=== PATIENT | female | born 1995 | race American Indian/Alaskan Native ===

== ENCOUNTER 2018-04-14 16:41 | Outpatient (CLI) | payer MEDICAID ==
[2018-04-14 17:04] VITALS: BP 114/64
[2018-04-14 18:39] LABS: Bilirubin,Urine NEG (Negative); Blood,Urine NEG (Negative); Color,Urine Yellow (Yellow); Protein,Urine <15 mg/dL mg/dL (Negative); Urobilinogen,Urine < 2.0 mg/dL (<2.0)
[2018-04-14 18:59] LABS: Amphetamine Screen,Urine PRESUMPTIVE NEGATIVE; Benzodiazepines Screen,Urine PRESUMPTIVE NEGATIVE; Cannabinoid Screen,Urine PRESUMPTIVE NEGATIVE; Cocaine Screen,Urine PRESUMPTIVE NEGATIVE; Methadone Screen,Urine PRESUMPTIVE NEGATIVE; Opiate Screen,Urine PRESUMPTIVE NEGATIVE
--- NOTE | 2018-04-14 19:47 | Ultrasound Report ---
FINAL REPORT EXAM: US OB > = 14 WEEKS FETUS HISTORY: limited PNC/leaking fluid TECHNIQUE: Ultrasound obstetrical transabdominal PRIORS: None. FINDINGS: Single live intrauterine gestation present in cephalic presentation The placenta is grade 2 and anterior Amniotic fluid index is 12.4 centimeters within normal limits. Deepest pocket measurement 5.13 centimeters biometric measurements were obtained Biparietal diameter 34 weeks 1 day Head circumference 35 weeks 4 days Abdominal circumference 34 weeks 0 days Femur length 33 weeks 6 days Based on today's exam estimated gestational age 34 weeks 2 days with estimated date of delivery May 24, 2018 Estimated weight today is 2363 grams Following structures seen appear grossly unremarkable, stomach, kidneys, urinary bladder, diaphragm, four-chamber view of the heart, three-vessel cord and cord insert, lateral ventricles and choroid plexus Visualized portions of the spine are unremarkable. IMPRESSION: Single live intrauterine gestation estimated at 34 weeks 2 days Based on today's exam estimated date of delivery May 24, 2018 Amniotic fluid index within normal limits 12.4 centimeters
== END 2018-04-14 19:10 | disposition home or self-care (01) ==
LOC: TRG 16:41
PROVIDERS: ATTEND Obstetrics & Gynecology
DX: O47.03 False labor before 37 completed weeks of gestation, third trimester (principal); Z79.899 Other long term (current) drug therapy; Z3A.35 35 weeks gestation of pregnancy
CPT/HCPCS: 59025; 76805; 80307; 81001

== ENCOUNTER 2018-05-02 08:12 | Outpatient (CLI) | payer MEDICAID ==
[2018-05-02 09:09] VITALS: BP 119/67
== END 2018-05-02 09:32 | disposition home or self-care (01) ==
LOC: TRG 08:12
PROVIDERS: ATTEND Obstetrics & Gynecology
DX: O47.03 False labor before 37 completed weeks of gestation, third trimester (principal); Z3A.36 36 weeks gestation of pregnancy
CPT/HCPCS: 59025

== ENCOUNTER 2018-05-07 05:17 | Inpatient (IN) | payer MEDICAID ==
[2018-05-07] MEDS ORDERED: ZOFRAN ODT PO ONE (06:30)
[2018-05-07 07:47] LABS: Bilirubin,Urine NEG (Negative); Blood,Urine NEG (Negative); Color,Urine Colorless (Yellow); Protein,Urine <15 mg/dL mg/dL (Negative); Urobilinogen,Urine < 2.0 mg/dL (<2.0)
--- NOTE | 2018-05-07 10:16 | History and Physical Report ---
History of Present Illness Date of examination: 05/07/18 Date of admission: 05/07/18 06:52 Chief complaint: Contractions History of present illness: 23yo G 2 P 1 0 0 1 at 37 weeks 2 days here with c/o contractions that started at 04:00. She reports positive movements but denies loss of fluid. She is a late transfer to [facility] from [place] at 34 weeks 4 days. She has a history of genital herpes and was on suppressive therapy. She denies recent outbreak or prodromal sxs. GBS is negative. Past History Past Medical History: no pertinent history Past Surgical History: no surgical history [employer] History: herpes Family/Genetic History: none Social history: single, full code - Obstetrical History Expected Date of Delivery: 05/26/18 Actual Gestation: 37 Week(s) 2 Day(s) : 2 Para: 1 Hx # Term Pregnancies: 1 Number of Pregnancies: 0 Spontaneous Abortions: 0 Induced : 0 Number of Living Children: 1 #1 Gender: Female year: (05/22/2015) Birthweight: 2.92 kg (6 lbs 7 oz) Method of Delivery: Vaginal Gestational age at delivery: 39 Complications: none Medications and Allergies Allergies Allergy/AdvReac Type Severity Reaction Status Date / Time No Known Allergies Allergy Verified 05/07/18 06:11 Home Medications Medication Instructions Recorded Confirmed Last Taken Type No Known Home Medications [No 05/02/18 05/02/18 Unknown History Reported Home Medications] Active Meds: Active Medications Lactated Ringer's (Lactated Ringers) 1,000 mls @ 125 mls/hr IV DIRECT LONNIE Review of Systems All systems: negative - Vital Signs Vital signs: Vital Signs Pulse BP 96 H 113/61 05/07/18 05:35 05/07/18 05:35 Temp Pulse Resp BP Pulse Ox 98.1 F 85 16 113/66 05/07/18 08:00 05/07/18 08:07 05/07/18 08:00 05/07/18 08:07 - Obstetrical FHR: auscultation normal, category 1 FHR comments: baseline 140, moderate variability, + accels, no decels Uterine Contraction Monitor Mode: External Cervical Dilatation: 5 (per RN) Cervical Effacement Percentage: 80 (per RN) station: -2 (per RN) Uterine Contraction Pattern: Regular Results Result Diagrams: 05/07/18 08:00 All other labs normal. Assessment and Plan - Patient Problems (1) 37 weeks gestation of Current Visit: Yes Status: Acute (2) Active labor at term Current Visit: Yes Status: Acute Plan to address problem: Admit to L&D with routine labor orders Anticipate vaginal delivery
[2018-05-07 10:20] LABS: Basophils % (Auto) 0.2 % (0.0-1.8); Eosinophils # (Auto) 0.1 K/mm3 (0.0-0.4); Eosinophils % (Auto) 0.8 % (0.0-4.3); Hematocrit 31.2 % (30.3-42.9); Hemoglobin 10.2 gm/dl (10.1-14.3); Lymphocytes # (Auto) 1.4 K/mm3 (1.2-5.4); Lymphocytes % (Auto) 19.2 % (13.4-35.0); Mean Corpuscular HGB Conc 33 % (30-34); Mean Corpuscular Hemoglobin 29 pg (28-32); Mean Corpuscular Volume 88 fl (79-97); Monocytes # (Auto) 0.8 K/mm3 (0.0-0.8); Monocytes % (Auto) 10.6 % (0.0-7.3); Platelet Count 147 K/mm3 (140-440); Red Blood Count 3.55 M/mm3 (3.65-5.03); Red Cell Distribution Width 15.7 % (13.2-15.2)
[2018-05-07] MEDS ORDERED: SUBLIMAZE IV PRN (10:30)
[2018-05-07] MEDS ORDERED: MINERAL OIL PO PRN (10:30)
[2018-05-07] MEDS ORDERED: XYLOCAINE 2% INFILTRATI NR (10:30)
[2018-05-07] MEDS ORDERED: BRETHINE SUB-Q PRN (10:30)
[2018-05-07] MEDS ORDERED: ePHEDrine SULFATE IV PRN ×2 (10:30→21:10)
[2018-05-07] MEDS ORDERED: PITOCin/NS 20 UNIT/1000ML DRIP 20 UNITS/1,000 ML BAG IV SCH (11:00)
[2018-05-07] MEDS: LACTATED RINGERS 1,000 ML IV SCH ×4 (11:30→21:49)
[2018-05-07] MEDS ORDERED: PITOCin/NS 30 UNIT/500ML 30 UNITS/500 ML BAG IV ONE (16:00)
--- NOTE | 2018-05-07 21:09 | Anesthesia Consultation ---
Anesthesia Consult and Med Hx Date of service: 05/07/18 - Airway Anesthetic Teeth Evaluation: Good ROM Head & Neck: Adequate Mental/Hyoid Distance: Adequate Mallampati Class: Class II Intubation Access Assessment: Probably Good - Pre-Operative Health Status ASA Pre-Surgery Classification: ASA2 Proposed Anesthetic Plan: Epidural, Spinal - Pulmonary Hx Asthma: No COPD: No Hx Pneumonia: No - Cardiovascular System Hx Hypertension: No - Central Nervous System Hx Seizures: No Hx Psychiatric Problems: No - Endocrine Hx Renal Disease: No Hx End Stage Renal Disease: No Hx Hypothyroidism: No Hx Hyperthyroidism: No - Hematic Hx Anemia: No Hx Sickle Cell Disease: No - Other Systems Hx Alcohol Use: No
[2018-05-07] MEDS ORDERED: NARCAN 2 MG/2 ML IV PRN (21:10)
[2018-05-07] MEDS ORDERED: fentaNYL-BUPIV 2 MCG/ML-0.125% 200 MCG/100 ML BAG EPIDURAL SCH (22:00)
--- NOTE | 2018-05-07 22:15 | Event Note ---
Date: 05/07/18 S: Pt resting in bed. Family members at bedside. Pain level 0/10 post-epidural. O: baseline 135, mod variability, + accels, intermittent early & variable decels Ctxs: q2-3mins, palpate moderate Oxytocin @ 8mu/min AROM @ 21:52; clear fluid, large amount A: 23yo G 2 P 1 0 0 1 at 37w4d by LMP confirmed by 14w3d US Active labor Category II FHR Pain well controlled P: Continue labor augmentation with Oxytocin Continue routine labor orders Anticipate vaginal delivery
--- NOTE | 2018-05-07 23:04 | Procedure Note ---
OB Delivery Note - Delivery Date of Delivery: 05/07/18 (22:38) Surgeon: DIVYA MCINTYRE (JAN) Estimated blood loss: 200cc - Vaginal Delivery presentation: vertex Delivery position: OA Intrapartum events: none Delivery induction: none Delivery augmentation: rupture of membranes, pitocin Delivery monitor: external FHT, external uterine Route of delivery: Delivery placenta: spontaneous (22:46) Delivery cord: 3 umbilical vessels Episiotomy: none Delivery laceration: none Anesthesia: epidural Delivery comments: of a vigorous term 5 lbs 11.5oz female at 22:38. Baby placed [id number] on maternal abdomen and dried. Umbilical cord double-clamped by JAN Mcintyre and cut by FOB. Spontaneous delivery of placenta, Jenifer-side presenting @22:46 ; was discarded. Small lochia noted. Fundus F/ML/U-2. Placenta intact. No lacerations present. Perineum intact. Mom and baby in stable condition. - A at 1 minute: 8 at 5 minutes: 9 Infant Gender: Female (5 lbs 11.5 oz (2594 gm); 18 in)
[2018-05-07] MEDS ORDERED: ZOFRAN IV PRN (23:42)
[2018-05-07] MEDS ORDERED: PHENERGAN PR PRN (23:42)
[2018-05-07] MEDS ORDERED: LANSINOH TP PRN (23:42)
[2018-05-07] MEDS ORDERED: MILK OF MAGNESIA PO PRN (23:42)
[2018-05-07] MEDS ORDERED: TUCKS PAD TP PRN (23:42)
[2018-05-07] MEDS ORDERED: TYLENOL PO PRN (23:42)
[2018-05-07] MEDS ORDERED: NORCO 5/325 PO PRN (23:42)
[2018-05-07] MEDS ORDERED: PHENERGAN PO PRN (23:42)
[2018-05-07] MEDS ORDERED: DULCOLAX PR PRN (23:42)
[2018-05-07] MEDS ORDERED: BENADRYL PO PRN (23:42)
[2018-05-07] MEDS ORDERED: SODIUM CHLORIDE FLUSH SYRINGE 10 ML IV PRN (23:45)
[2018-05-08] MEDS: MOTRIN PO SCH ×2 (01:42→10:22)
[2018-05-08] MEDS ORDERED: PRENATAL VITAMIN PO SCH (10:00)
--- NOTE | 2018-05-08 10:10 | Progress Note ---
Assessment and Plan A: PPD#1 s/p Stable P: Routine PP care Anticipate discharge home 24-48hrs Subjective - Subjective Date of service: 05/08/18 Principal diagnosis: PPD#1 s/p Patient reports: appetite normal, voiding normally, pain well controlled, flatus , ambulating normally, no bowel movement [place]: doing well, nursing well Objective - Vital Signs Latest vital signs: Vital Signs Temp Pulse Resp BP BP Pulse Ox 05/08/18 07:59 83 107/71 100 05/08/18 07:58 97.4 F L 80 18 107/71 100 05/08/18 06:05 97.5 F L 59 L 18 101/59 05/08/18 04:18 20 05/08/18 01:42 20 05/08/18 01:35 98.0 F 72 110/65 05/08/18 00:14 97.9 F 18 05/08/18 00:07 54 L 104/69 05/07/18 23:52 64 122/59 05/07/18 23:37 65 110/66 05/07/18 23:22 80 113/66 05/07/18 23:07 77 115/58 05/07/18 22:52 107/65 05/07/18 22:37 75 119/66 05/07/18 22:33 95 H 76 L 05/07/18 22:31 106 H 99 05/07/18 22:26 85 97 05/07/18 22:22 90 124/64 05/07/18 22:21 89 100 05/07/18 22:16 99 H 100 05/07/18 22:11 83 100 05/07/18 22:06 80 117/71 100 05/07/18 22:04 80 126/70 05/07/18 22:01 67 115/59 100 05/07/18 21:59 71 109/58 05/07/18 21:57 81 105/58 05/07/18 21:56 71 99 05/07/18 21:55 69 105/58 05/07/18 21:53 75 105/60 05/07/18 21:51 71 106/62 96 05/07/18 21:49 77 108/56 05/07/18 21:47 75 108/59 05/07/18 21:46 76 113/57 97 05/07/18 21:43 71 110/62 05/07/18 21:41 71 121/62 99 05/07/18 21:39 65 110/57 05/07/18 21:37 72 115/64 05/07/18 21:36 67 99 05/07/18 21:35 67 115/69 05/07/18 21:33 75 110/64 05/07/18 21:31 65 117/65 99 05/07/18 21:29 73 117/68 05/07/18 21:27 80 108/66 05/07/18 21:26 75 98 05/07/18 21:25 76 114/66 05/07/18 21:23 85 114/70 05/07/18 21:21 82 116/68 100 05/07/18 21:19 86 115/68 05/07/18 21:17 83 121/69 05/07/18 21:16 78 100 05/07/18 21:14 90 115/58 05/07/18 21:12 107 H 76 L 05/07/18 21:11 104 H 100 05/07/18 21:08 68 120/70 05/07/18 21:05 71 115/60 05/07/18 20:39 74 110/61 05/07/18 20:33 72 111/66 05/07/18 20:29 77 112/62 05/07/18 20:23 67 109/61 05/07/18 20:17 78 109/59 05/07/18 20:00 97.8 F 16 05/07/18 17:54 81 116/66 05/07/18 11:05 91 H 116/68 Intake and Output 05/07/18 05/08/18 05/08/18 23:59 07:59 15:59 Intake Total 564.733 240 Output Total 1700 Balance 564.733 -1460 Intake: IV 564.733 Lactated Ringers 1,000 ml 550.000 @ 125 mls/hr IV DIRECT LONNIE Rx#:[id number] PITOCin/NS 30 UNIT/500ML 14.733 30 units In 500 ml @ 2 MILLIUNITS/MIN 2 mls/hr IV DIRECT ONE Rx#: [id number] Intake, Free Water 240 Output: Urine 1700 Indwelling Catheter 700 Void 1000 Other: Total, Output Amount 400 # Voids Void 1 Estimated Blood Loss 200 - Exam Breasts: Present: normal Cardiovascular: Present: Regular rate, Normal S1, Normal S2, No murmurs Lungs: Present: Clear to auscultation, Normal air movement Abdomen: Present: normal appearance, soft, normal bowel sounds. Absent: distention Vulva: both: normal Uterus: Present: firm, fundal height below umbilicus (-1) Extremities: Present: normal Deep Tendon Reflex Grade: Normal +2 - Labs Labs: Abnormal lab results 05/07/18 Range/Units 08:00 RBC 3.55 L (3.65-5.03) M/mm3 RDW 15.7 H (13.2-15.2) % [place] % (Auto) 10.6 H (0.0-7.3) %
--- NOTE | 2018-05-08 10:12 | Discharge Summary ---
Providers - Providers Date of Admission: 05/07/18 06:52 Date of discharge: 05/09/18 Attending physician: GURPREET CASTANEDA MD Primary care physician: GURPREET CASTANEDA MD Hospitalization Reason for admission: active labor, IUP at term Delivery: Procedure details: See H&P and Delivery note Episiotomy: none Laceration: none Other procedures: none complications: none Discharge diagnosis: IUP at term delivered baby: female Condition at discharge: Good Disposition: DC-01 TO HOME OR SELFCARE Plan - Provider Discharge Summary Activity: routine, no sex for 6 weeks, no heavy lifting 4 weeks, no strenuous exercise Diet: routine Instructions: routine Additional instructions: [] Smoking cessation referral if applicable(refer to patient education folder for contact #) [] Refer to [facility] Booklet Call your doctor immediately for: * Fever > 100.5 * Heavy vaginal bleeding ( >1 pad per hour) * Severe persistent headache * Shortness of breath * Reddened, hot, painful area to leg or breast * Drainage or odor from incision. * Keep incision clean and dry at all times and follow doctor's instructions regarding bathing/showering - Follow up plan Follow up: GURPREET CASTANEDA MD [Primary Care Provider] - 6 Weeks
[2018-05-08 12:50] LABS: Hematocrit 27.6 % (30.3-42.9); Hemoglobin 9.3 gm/dl (10.1-14.3)
[2018-05-09] MEDS: MOTRIN PO SCH ×2 (00:36→05:56)
[2018-05-09 12:45] VITALS: BP 112/66
== END 2018-05-09 13:05 | disposition home or self-care (01) | DRG 775 ==
LOC: TRG 05:17 → LD 06:52 → TRG 06:52 → OB 05-08 00:30
PROVIDERS: ADMIT Obstetrics & Gynecology; ATTEND Obstetrics & Gynecology
PROC: 10E0XZZ Delivery of Products of Conception, External Approach (ICD-10-PCS; principal; 2018-05-07)
PROC: 3E0R3BZ Introduction of Anesthetic Agent into Spinal Canal, Percutaneous Approach (ICD-10-PCS; 2018-05-07)
PROC: 00HU33Z Insertion of Infusion Device into Spinal Canal, Percutaneous Approach (ICD-10-PCS; 2018-05-07)
DX: O80 Encounter for full-term uncomplicated delivery (principal); Z3A.37 37 weeks gestation of pregnancy; Z37.0 Single live birth
CPT/HCPCS: 36415; 81001; 85014; 85018; 85025; 86762; 86850; 86900; 86901; 99211; G0463; J2590; J7120; Q0162